=== PATIENT | female | born 1975 | race African-American/Black ===

== ENCOUNTER 2021-06-16 03:55 | Emergency (ER) | payer BC ==
[~2021-06-16] VITALS: Ht 165.1 cm; Wt 59.0 kg
[2021-06-16] MEDS ORDERED: KETOROLAC 15 MG/ML VIAL. IVP ONE (04:15)
[2021-06-16] MEDS ORDERED: LIDOCAINE (700MG/PATCH) PATCH. TD ONE (04:15)
[2021-06-16] MEDS ORDERED: diazePAM 5 MG TABLET PO ONE (04:15)
--- NOTE | 2021-06-16 04:18 | PHYS DOC ---
General Adult EDM: Chief Complaint: BACK PAIN OR INJURY HPI: HPI: 46-year-old female presents to the emergency department complaining of right lower back pain for the past several days exacerbated after she moved a heavy object at work (she works as a warehouse employee at [employer]). She reports that her pain radiates from the right side of her lower back down to her right leg, states the pain is sharp, also radiates towards the right groin. Pain is worse with movements. She noticed the pain when she was lifting heavy object and notes that it made her feel like she was going to pass out. She is currently on her menstrual cycle which is normal at this time. The patient denies recent weight loss, fever, saddle anesthesia, bowel or bladder incontinence, abdominal pain, syncope, weakness or numbness, chest pain, shortness of breath, or any other medical complaints. Also denies IV drug use, history of spinal surgery, history of cancer, or immunodeficiency history. EMS gave 50 mcg of fentanyl in route Review of Systems: Review of Systems: Review of systems is otherwise negative except for what was mentioned in HPI Heart Score: C/O Chest Pain: No Physical Exam: PE: Constitutional: No acute distress, non-toxic appearance. HENT: Atraumatic, bilateral external ears normal, nose normal. Eyes: PERRLA, EOMI, conjunctiva normal, no discharge. Neck: Normal range of motion, supple, nontender cervical spine, no stridor. Cardiovascular: Heart rate regular rhythm. 2+ radial pulses Lungs & Thorax: No respiratory distress, symmetrical expansion. Abdomen: Soft, no tenderness Skin: Warm, dry, no rash. Extremities: No tenderness, no cyanosis, ROM intact, no edema. Back: No point or midline T or L-spine tenderness, palpable spasm in the right lower lumbar area, overlying skin is unremarkable, no CVA tenderness Neurologic: Alert and oriented X 3, 5/5 strength in lower extremities bilaterally, L3-S1 dermatomes are intact and equal bilaterally, no focal deficits noted. GCS 15. Current Patient Data: Labs: Laboratory Tests Test 06/16/21 04:27 Bedside Urine HCG, Qualitative Hcg negative (Negative) Vital Signs: Vital Signs Date Time Temp Pulse Resp B/P (MAP) Pulse Ox O2 Delivery O2 Flow Rate FiO2 06/16/21 04:50 72 18 112/73 (86) 98 Room Air 06/16/21 04:40 98.1 68 18 123/71 (88) 98 98.1 06/16/21 04:20 68 18 130/65 (86) 96 Room Air 06/16/21 03:55 98.1 73 18 123/71 (88) 96 Room Air 98.1 Course & Med Decision Making: Course & Med Decision Making My Orders - PETER ALATORRE DO Procedure Category Date Status Time Ketorolac 15mg Vial PHA 06/16/21 Logged (Toradol 15mg Vial) 04:15 Diazepam (Valium) PHA 06/16/21 Logged 04:15 Lidocaine PHA 06/16/21 Logged (700mg/Patch) 04:15 Urine Test AYO 06/16/21 In Process 04:13 patient felt bettter after interventions, exam consistent with sciatica. counseled on return precautions and treatment. work note provided Departure Departure Impression: Primary Impression: Right sided sciatica Disposition: HOME / SELF CARE / HOMELESS Condition: STABLE Referrals: NIGEL BURTON (PCP) Patient Instructions: Sciatica, [id number] Additional Instructions: You were seen in the emergency department for back pain. Your pain could be musculoskeletal in nature and could be from a pulled or strained muscle. The pain should improve with NSAID medications (ibuprofen, Aleve, etc.), stretching, and light activity. You may also use Tylenol for your back pain (no more than 3000 mg per day). Take as directed by instructions. Do not take NSAID medications if you have kidney disease. Do not take Tylenol if you have liver disease. If it does not improve, you should follow up with a primary care doctor. - Use stretching and strengthening exercises at least twice per day, continue to complete physical activity such as walking, and alternate ice and heat (ie heating pad) to the area of pain. - Return to the Emergency Department should your symptoms worsen, or should you develop a fever, change in bowel or bladder habits, weakness or numbness in your lower extremities, inability to walk, or any concern you feel warrants further evaluation. - Take Aleve or Ibuprofen, and Tylenol as needed for your pain. - You may use over the counter lidocaine patches as needed for pain. - Avoid taking narcotic medications for back pain. - Follow up with your doctor within 1-2 weeks if your symptoms are not improving. PETER ALATORRE DO Jun 16, 2021 04:18
[2021-06-16 04:50] VITALS: BP 112/73
== END 2021-06-16 05:15 | disposition home or self-care (01) ==
LOC: ER 03:55
DX: M54.41 Lumbago with sciatica, right side (principal); R10.31 Right lower quadrant pain
CPT/HCPCS: 81025; 96374; 99283; J1885